=== PATIENT | male | born 1950 | race Caucasian/White ===

== ENCOUNTER 2017-08-18 12:06 | Inpatient (IN) | payer MEDICARE, BC ==
[~2017-08-18] VITALS: Ht 182.9 cm; Wt 100.5 kg
[2017-08-18] VITALS (13 sets, daily range): BP systolic 134–191; BP diastolic 69–96; PULSE 47–64; RESP 16–18; TEMP 98–98.2; O2SAT 98–100
[2017-08-18] MEDS ORDERED: SODIUM CHLORIDE 0.9% FLUSH 10 ML FLUSH IVF PRN (12:30)
--- NOTE | 2017-08-18 12:37 | PD ---
HPI Chief Complaint: Chest Pain Time Seen by Provider: 12:14 Travel History International Travel<30 days: No Contact w/Intl Traveler<30days: No Traveled to known affect area: No History of Present Illness HPI This 67-year-old male presents with complaint of chest pain. He started having chest pain 2 nights ago. Around bedtime he had an onset of substernal chest pain. He was unable to sleep for several hours and then the pain resolved and he was able to sleep. He had the pain again last night he says it lasted about an hour then he was a little bit short of breath he does not recall being diaphoretic. The pain again resolved. This morning he had the pain again. It started about an hour and a half before he came here. It has largely resolved at this time though he has some minimal discomfort. He has a history of coronary artery disease he says that 12 years ago he had 2 or 3 stents placed in his heart and he also had a stent placed in his abdominal aorta around that time. He does take aspirin daily. He has a history of hypertension and is on metoprolol. He does smoke a pack a day. There was no radiation of the pain. Since his stents replaced 12 years ago he does not think he has had a stress test. He was seeing in [place] but has moved back here. 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) Joint Replacement: Yes (left hip) Oral Surgery: Yes (wisdom teeth removed) Social History Alcohol Use: Yes (socially beer 2-3 a day) Tobacco Use: Yes (1 ppd) Substance Use: No Allergies-Medications (Allergen,Severity, Reaction): Coded Allergies: amoxicillin (Verified Allergy, Intermediate, n/v, 08/18/17) clavulanic acid (Verified Allergy, Intermediate, n/v, 08/18/17) Reported Meds & Prescriptions Reported Meds & Active Scripts Active Reported Centrum Silver Men Tablet (Multivit-Min/FA/Lycopen/Lutein) 300 Mcg-600 Mcg-300 Mcg Tablet 1 Tab PO DAILY Trazodone (Trazodone HCl) 100 Mg Tablet 100 Mg PO HS Ambien (Zolpidem Tartrate) 10 Mg Tab 10 Mg PO HS PRN Pantoprazole (Pantoprazole Sodium) 40 Mg Tab 40 Mg PO HS Metoprolol Succinate ER 24 HR (Metoprolol Succinate) 100 Mg Tab 100 Mg PO DAILY Triamterene-Hydrochlorothiazide 37.5-25 Mg Tab 1 Tab PO DAILY Livalo (Pitavastatin) 2 Mg Tab 2 Mg PO DAILY Aspirin EC (Aspirin) 325 Mg Tabdr 325 Mg PO DAILY Review of Systems General / Constitutional: No: Fever, Chills Eyes: No: Diploplia, Blurred Vision HENT: No: Headaches, Vertigo Cardiovascular: Positive: Chest Pain or Discomfort, No: Palpitations, Irregular Rhythm, Syncope, Edema Respiratory: No: Cough, Hemoptysis Gastrointestinal: No: Nausea, Vomiting Genitourinary: No: Frequency Musculoskeletal: No: Myalgias, Arthralgias Neurologic: No: Weakness Psychiatric: No: Suicidal Ideations Endocrine: No: Heat Intolerance, Cold Intolerance Hematologic/Lymphatic: No: Easy Bruising Physical Exam Narrative GENERAL: Well-developed male SKIN: Focused skin assessment warm/dry. HEAD: Atraumatic. Normocephalic. EYES: Pupils equal and round. No scleral icterus. No injection or drainage. ENT: No nasal bleeding or discharge. Mucous membranes pink and moist. NECK: Trachea midline. No JVD. CARDIOVASCULAR: Regular rate and rhythm. No murmur appreciated. RESPIRATORY: No accessory muscle use. Clear to auscultation. Breath sounds equal bilaterally. GASTROINTESTINAL: Abdomen soft, non-tender, nondistended. Hepatic and splenic margins not palpable. MUSCULOSKELETAL: No obvious deformities. No clubbing. No cyanosis. No edema. NEUROLOGICAL: Awake and alert. No obvious cranial nerve deficits. Motor grossly within normal limits. Normal speech. PSYCHIATRIC: Appropriate mood and affect; insight and judgment normal. Data Data Last Documented VS Vital Signs Date Time Temp Pulse Resp B/P (MAP) Pulse Ox O2 Delivery O2 Flow Rate FiO2 08/18/17 12:30 60 16 155/89 (111) 99 Room Air 08/18/17 12:17 98.0 Orders Orders Electrocardiogram (08/18/17 12:24) B-Type Natriuretic Peptide (08/18/17 12:24) Ckmb (Isoenzyme) Profile (08/18/17 12:24) Complete Blood Count With Diff (08/18/17 12:24) Comprehensive Metabolic Panel (08/18/17 12:24) Magnesium (Mg) (08/18/17 12:24) Prothrombin Time / Inr (Pt) (08/18/17 12:24) Act Partial Throm Time (Ptt) (08/18/17 12:24) Troponin I (08/18/17 12:24) Chest, Single Ap (08/18/17 12:24) Ecg Monitoring (08/18/17 12:24) Iv Access Insert/Monitor (08/18/17 12:24) Oximetry (08/18/17 12:24) Sodium Chloride 0.9% Flush (Ns Flush) (08/18/17 12:30) Nitroglycerin 2% Oint (Nitroglycerin 2% (08/18/17 13:45) Labs Laboratory Tests Test 08/18/17 12:10 White Blood Count 7.0 TH/MM3 Red Blood Count 4.91 MIL/MM3 Hemoglobin 16.1 GM/DL Hematocrit 47.3 % Mean Corpuscular Volume 96.5 FL Mean Corpuscular Hemoglobin 32.8 PG Mean Corpuscular Hemoglobin Concent 34.0 % Red Cell Distribution Width 11.9 % Platelet Count 260 TH/MM3 Mean Platelet Volume 7.5 FL Neutrophils (%) (Auto) 53.5 % Lymphocytes (%) (Auto) 36.0 % Monocytes (%) (Auto) 8.8 % Eosinophils (%) (Auto) 1.3 % Basophils (%) (Auto) 0.4 % Neutrophils # (Auto) 3.8 TH/MM3 Lymphocytes # (Auto) 2.5 TH/MM3 Monocytes # (Auto) 0.6 TH/MM3 Eosinophils # (Auto) 0.1 TH/MM3 Basophils # (Auto) 0.0 TH/MM3 CBC Comment DIFF FINAL Differential Comment Prothrombin Time 10.2 SEC Prothromb Time International Ratio 1.0 RATIO Activated Partial Thromboplast Time 26.3 SEC Blood Urea Nitrogen 9 MG/DL Creatinine 0.83 MG/DL Random Glucose 113 MG/DL Total Protein 8.0 GM/DL Albumin 3.8 GM/DL Calcium Level 8.7 MG/DL Magnesium Level 2.2 MG/DL Alkaline Phosphatase 76 U/L Aspartate Amino Transf (AST/SGOT) 20 U/L Alanine Aminotransferase (ALT/SGPT) 26 U/L Total Bilirubin 0.6 MG/DL Sodium Level 128 MEQ/L Potassium Level 3.6 MEQ/L Chloride Level 93 MEQ/L Carbon Dioxide Level 29.9 MEQ/L Anion Gap 5 MEQ/L Estimat Glomerular Filtration Rate 93 ML/MIN Total Creatine Kinase 64 U/L Troponin I 0.47 NG/ML B-Type Natriuretic Peptide 222 PG/ML [facility] Medical Decision Making Medical Screen Exam Complete: Yes Emergency Medical Condition: Yes Medical Record Reviewed: Yes Differential Diagnosis Differential includes coronary artery disease, unstable angina, and STEMI, GERD Narrative Course EKG shows sinus rhythm there are Q waves in leads III and F. There are symmetrically inverted T waves from V1 through V5 as well as lead I and L. Troponin level is 0.46. Patient has been pain-free Diagnosis Primary Impression: Acute coronary syndrome Bob Prather MD Aug 18, 2017 12:37
[2017-08-18] MEDS ORDERED: L-THPOW PO (12:47)
[2017-08-18] MEDS ORDERED: METO1TAB43 PO (12:47)
[2017-08-18] MEDS ORDERED: ASPI325T33 PO (12:47)
[2017-08-18] MEDS ORDERED: TRIA37.5 PO (12:47)
[2017-08-18] MEDS ORDERED: TRAZ100T10 PO (12:47)
[2017-08-18] MEDS ORDERED: AMBI10TA PO (12:47)
[2017-08-18] MEDS ORDERED: PANT40TA3 PO (12:47)
[2017-08-18] MEDS ORDERED: LIVA2TAB PO (12:47)
[2017-08-18] MEDS ORDERED: MULT1TAB64 PO (12:48)
[2017-08-18 12:50] LABS: AUTOMATED NEUTROPHIL # 3.8 TH/MM3 (1.8-7.7); BASOPHIL % 0.4 % (0.0-2.0); EOSINOPHIL # 0.1 TH/MM3 (0-0.4); EOSINOPHIL % 1.3 % (0.0-4.0); HEMATOCRIT 47.3 % (39.0-51.0); HEMOGLOBIN 16.1 GM/DL (13.0-17.0); LYMPHOCYTE # 2.5 TH/MM3 (1.0-4.8); MEAN CELL VOLUME 96.5 FL (80.0-100.0); MEAN CORPUSCULAR HEMOGLOBIN 32.8 PG (27.0-34.0); MEAN PLATELET VOLUME 7.5 FL (7.0-11.0); MONO % 8.8 % (0.0-8.0); MONOCYTE # 0.6 TH/MM3 (0-0.9); NEUT % 53.5 % (16.0-70.0); PLATELET COUNT 260 TH/MM3 (150-450); RED BLOOD COUNT 4.91 MIL/MM3 (4.50-5.90); RED CELL DISTRIBUTION WIDTH 11.9 % (11.6-17.2)
[2017-08-18 12:57] LABS: CHLORIDE 93 MEQ/L (98-107); SODIUM (NA) 128 MEQ/L (136-145)
[2017-08-18 13:00] LABS: CALCIUM 8.7 MG/DL (8.5-10.1)
[2017-08-18 13:01] LABS: ALBUMIN 3.8 GM/DL (3.4-5.0); BICARBONATE 29.9 MEQ/L (21.0-32.0); BLOOD UREA NITROGEN 9 MG/DL (7-18); GLUCOSE,RANDOM 113 MG/DL (74-106); MAGNESIUM 2.2 MG/DL (1.5-2.5); PROTHROMBIN TIME - PATIENT 10.2 SEC (9.8-11.6)
[2017-08-18 13:04] LABS: ALT (GPT) 26 U/L (12-78); AST (GOT) 20 U/L (15-37); CREATININE 0.83 MG/DL (0.60-1.30); GLOMERULAR FILTRATION RATE 93 ML/MIN (>89)
--- NOTE | 2017-08-18 13:04 | RADRPT ---
EXAM DATE/TIME: 08/18/2017 12:52 [facility] COMPARISON: No previous studies available for comparison. INDICATIONS : Chest pain. MEDICAL HISTORY : Hypertension. Hypercholesterolemia. Gastroesophageal reflux disease. CAD SURGICAL HISTORY : Aortic stent, Thyroidectomy ENCOUNTER: Initial ACUITY: 2 days PAIN SCORE: 3/10 LOCATION: Bilateral chest FINDINGS: A single view of the chest demonstrates the lungs to be symmetrically aerated without evidence of mas s, infiltrate or effusion. The cardiomediastinal contours are unremarkable. Mild degenerative change s are noted throughout the thoracic spine. CONCLUSION: No acute cardiopulmonary disease. Mild degenerative changes involving the thoracic sp ine. Quentin Rudd MD on August 18, 2017 at 13:02 Board Certified Radiologist. This report was verified electronically.
[2017-08-18 13:06] LABS: TOTAL BILIRUBIN ADULT 0.6 MG/DL (0.2-1.0)
[2017-08-18 13:07] LABS: ALKALINE PHOSPHATASE 76 U/L (45-117)
[2017-08-18 13:09] LABS: TROPONIN I 0.47 NG/ML (0.02-0.05)
[2017-08-18] MEDS ORDERED: NITROGLYCERIN 2% OINT 1 GM PACKET TOPICAL ONE (13:45)
[2017-08-18] MEDS ORDERED: HEPARIN-D5W 25,000 U/250 ML 250 ML IV PRN (14:15)
[2017-08-18] MEDS ORDERED: ONDANSETRON HCL 4 MG/2 ML VIAL IVP PRN (14:15)
[2017-08-18] MEDS ORDERED: SODIUM CHLORIDE 0.9% FLUSH 10 ML FLUSH IV FLUSH PRN ×2 (14:15→18:00)
[2017-08-18] MEDS ORDERED: NALOXONE HCL 0.4 MG/ML AMP IV PUSH PRN (14:15)
[2017-08-18] MEDS ORDERED: MAGNESIUM HYDROXIDE SUSP 30 ML CUP PO PRN (14:15)
[2017-08-18] MEDS ORDERED: HEPARIN SODIUM - IV 10,000 UNITS/10 ML VIAL IV PUSH ONE (14:15)
[2017-08-18] MEDS ORDERED: MORPHINE SULFATE 2 MG/ML INJ IV PUSH PRN ×2 (14:15)
[2017-08-18] MEDS ORDERED: MIDAZOLAM HCL 2 MG/2 ML VIAL ONE (16:00)
[2017-08-18] MEDS ORDERED: HEPARIN-NS/PF FLUSH BAG 2,000 ML IV FLUSH ONE (16:00)
[2017-08-18] MEDS ORDERED: HEPARIN SODIUM - IV 10,000 UNITS/10 ML VIAL ONE (17:07)
[2017-08-18] MEDS ORDERED: PRASUGREL 10 MG TAB ONE (17:25)
[2017-08-18] MEDS ORDERED: TIROFIBAN INFUSION INJ 250 ML IV ONE (17:25)
[2017-08-18] MEDS ORDERED: SODIUM NITROPRUSSIDE 50 MG/2 ML VIAL ONE (17:25)
[2017-08-18] MEDS ORDERED: NITROGLYCERIN-D5W 50 MG/250 ML 250 ML ONE (17:36)
[2017-08-18] MEDS ORDERED: TIROFIBAN INFUSION INJ 250 ML IV SCH (17:46)
[2017-08-18] MEDS ORDERED: ASPIRIN 81 MG CHEW TAB ONE (17:50)
--- NOTE | 2017-08-18 17:58 | CATHPROC ---
[facility]-SYNARC HIS Report Study Information Study Number Admission Scheduled Start Study Start [id number] Aug 18 2017 2:06PM 08/18/2017 Aug 18 2017 3:58PM [place] Service Cardiac Catheterization Admit Source Facility Department Emergency department [facility] - [employer] Machine Operator Physician and Clinical Staff Initial Eulalio Vences Crop PickerJeff Lewis,JASBIR Crop PickerBianca Colon,JASBIR Recorder Clifton, Donald,RT(R) Scrub Mark, Trish,SYSTEM SUPPORT TECHNICIAN TECH2 Procedures Performed Procedure Location (Site) Vessel Name Coronary Angiograms LCA Left Coronary LV Gram-hand inj. LV LV Ventricle Stent LAD Prox Left Coronary Wire insertion Fem Art (right) Femoral Art Equipment Time Telemedicine Physician Description Size Mfg Part Number Used/Scraped [id number] 17:06 [employer] WIRE, ASAHI PROWATER 180CM 180CM Used *[id number] 11393-02 17:09 [employer] WIRE, ASAHI PROWATER 180CM 180CM Used *[id number] 75221-92 17:16 [employer] WIRE, ASAHI PROWATER 180CM 180CM Used *[id number] 25356-10 17:18 [employer] WIRE, ASAHI PROWATER 180CM 180CM Used *[id number] 11297-75 17:29 [employer] WIRE, ASAHI PROWATER 180CM 180CM Used *[id number] CATHETER, FR5 SWAN KISHA 16:40 GEORGE BULLOCK FR 5 110F5 *[id number] Used MONITOR TRANSDUCER, TRUWAVE [id number] 16:00 GEORGE BULLOCK * Used W/STOCKCOCK *[id number] [id number] 17:14 [employer] WIRE, CHOICE PT 182CM 182CM Used *3998592 538-476 *5281091 538-446 *4018440 538-420 *[id number] 538-421 *[id number] [id number] *[id number] 16:00 [employer] PACK, CCL CUSTOM * Used *[id number] 16:00 MEDLINE PACER PEN, SKIN DUAL W/ RULER * Used *[id number] 17:09 [employer] STENT, 3.5 9 INTEGRITY 3.5 9 Used *[id number] 17:24 [employer] 30 SORAYA INDEFLATOR Used *[id number] 16:40 [employer] SHEATH, FR5.5 PRELUDE 11CM FR 5 [id number] Used [id number] 17:12 [employer] MEDICAL SHEATH, FR6.5 PRELUDE 11CM FR 6.5 038ACT Used *[id number] 16:00 [employer] MEDICAL WIRE, 3MMJ .035 180CM 180CM Used *[id number] [id number] 16:00 NAMIC MANIFOLD, 4 PORT * Used *[id number] 16:00 [employer] OMNIPAQUE, 350 MG, 150ML 150ML [id number] Used [id number] 16:00 [facility] BLANKET,WARM AIR CCL * Used *[id number] 16:00 [employer] MEDICAL SHEATH, FR4 TERUMO (10CM) FR 4 Used *[id number] Equipment Model, Serial, Lot Number and Expiration Data Description Model Number Serial Number Lot Number Expiration Date STENT, 3.5 9 INTEGRITY [id number] 06-29-2018 WIRE, CHOICE PT 182CM [id number] 03-29-2019 History: Current Medications Medication Dosage/Unit Route Frequency Last Date/Time Taken ASA LOPRESSOR Ambien History: Allergies Allergy Reaction clavulanic acid n/v amoxicillin n/v History: Risk Factors Family History of Hypertension Dyslipidemia Previous ID Previous Heart Failure Premature CAD Yes Yes Yes Yes No Prior Valve Prior PCI Prior PCIDate Prior CABG Surgery No Yes 07/23/2011 No Cerebrovascular Peripheral Artery Chronic Lung On Dialysis Diabetes Disease Disease Disease No No No No No History: Risk Factors Selection Items Current Smoker Obesity History: Symptoms/Diagnosis Selection Items Chest pain SOB History: CV Disease Selection Items Known CAD History: Stress Tests Stress or Imaging Studies Performed No History: Other Disease Selection Items CAD HTN History: Other Current Smoker Method Packs a Day Years Used Pack Years Yes Cigarettes 1 20 20 Labs Hgb (g/dl) Hct (%) RBC (MIL/MM3) WBC (l/cumm) Platelets (thousands) 11.60-17.00 35.00-51.00 4.00-5.90 4.00-11.00 150.00-450.00 16.1 47.3 4.9 7 260 Glucose (mg/dl) BUN (mg/dl) Creatinine (mg/dl) BUN:Creatinine (1:x) 74.00-106.00 7.00-18.00 0.50-1.30 10.00-20.00 113 9 0.8 11.3 Na (meq/l) K (meq/l) Cl (meq/l) CO2 (mmol/L) Ca (mg/dl) 136.00-145.00 3.50-5.10 98.00-107.00 21.00-32.00 8.50-10.10 128 3.6 93 29.9 8.7 PT (sec) PTT (sec) INR (PTT:PT) 9.80-11.60 24.30-30.10 0.90-1.10 10.2 26.3 1 Troponin I (ng/ml) CPK (u/l) CPK-MB (ng/ML) 0.02-0.05 26.00-308.00 0.50-3.60 0.47 64 Not Drawn Medication Medication Total Dose (Bolus/Oral) Medication Total Dosage/Unit 1% XYLOCAINE 20 mL AGGRASTAT BOLUS 51 meq/kg ASPIRIN 162 mg EFFIENT 60 mg FENTANYL 150 mcg HEPARIN 7100 units VERSED 1 mg Medications (Bolus/Oral) Medication Time Given Dosage/Unit Administered By Reason 1% XYLOCAINE 08/18/2017 4:40:49 PM 20 mL Jeff Ya 20 mL 1% XYLOCAINE given in lab by Jeff Ya RN via Subcutaneous. VERSED 08/18/2017 4:40:51 PM 1 mg Jeff Ya 1 mg VERSED given in lab by Jeff Ya RN in Right Antecubital via Peripheral IV. FENTANYL 08/18/2017 4:40:53 PM 12.5 mcg Jeff Ya 12.5 mcg FENTANYL given in lab by Jeff Ya RN in Right Antecubital via Peripheral IV. FENTANYL 08/18/2017 4:46:15 PM 12.5 mcg Jeff Ya 12.5 mcg FENTANYL given in lab by Jeff Ya RN in Right Antecubital via Peripheral IV. FENTANYL 08/18/2017 4:51:03 PM 12.5 mcg Jeff Ya 12.5 mcg FENTANYL given in lab by Jeff Ya RN in Right Antecubital via Peripheral IV. FENTANYL 08/18/2017 5:03:58 PM 12.5 mcg Jeff Ya 12.5 mcg FENTANYL given in lab by Jeff Ya RN in Right Antecubital via Peripheral IV. HEPARIN 08/18/2017 5:08:55 PM 7100 units Jeff Ya 7100 units HEPARIN given in lab by Jeff Ya RN in Right Antecubital via Peripheral IV. FENTANYL 08/18/2017 5:20:09 PM 12.5 mcg Jeff Ya 12.5 mcg FENTANYL given in lab by Jeff Ya RN in Right Antecubital via Peripheral IV. FENTANYL 08/18/2017 5:28:13 PM 12.5 mcg Jeff Ya 12.5 mcg FENTANYL given in lab by Jeff Ya RN in Right Antecubital via Peripheral IV. AGGRASTAT BOLUS 08/18/2017 5:29:46 PM 51 meq/kg Bianca Alvarado 51 meq/kg AGGRASTAT BOLUS given in lab by Bianca Alvarado RN in Right Antecubital via Peripheral IV. Amount given = 5217.3 meq. EFFIENT 08/18/2017 5:31:52 PM 60 mg Jeff Ya 60 mg EFFIENT given in lab by Jeff Ya RN via Oral. FENTANYL 08/18/2017 5:43:34 PM 25 mcg Bianca Alvarado 25 mcg FENTANYL given in lab by Bianca Alvarado RN in Right Antecubital via Peripheral IV. Ordered by Eulalio Terrell. FENTANYL 08/18/2017 5:47:58 PM 25 mcg Bianca Alvarado 25 mcg FENTANYL given in lab by Bianca Alvarado RN in Right Antecubital via Peripheral IV. Ordered by Eulalio Terrell. ASPIRIN 08/18/2017 5:51:56 PM 162 mg Jeff Ya 162 mg ASPIRIN given in lab by Jeff Ya RN via Oral. Ordered by Eulalio Terrell. FENTANYL 08/18/2017 5:53:30 PM 25 mcg Jeff Ya 25 mcg FENTANYL given in lab by Jeff Ya RN in Right Antecubital via Peripheral IV. Ordered by Eulalio Terrell. Medication (Drip) Medication Time Given Dosage/Unit Concentration/Unit Diluent (ml) Soluti on AGGRASTAT DRIP 08/18/2017 5:35:51 PM 0.15 mcg/kg/min 12.5 mg 250 NaCl .9 0.15 mcg/kg/min AGGRASTAT DRIP given in lab by Jeff Ya, JASBIR in Right Antecubital via Peripheral IV. Pump/Drip Flow = 18.41 ml/hr using NaCl .9 with a concentration of 12.5 mg in 250 ml. Ordered by Eulalio Terrell. IV Solutions 08/18/2017 4:01:53 PM 0 mL (IV) 500 NaCl .9 IV Solutions given in lab by Jeff Ya, JASBIR in Right Antecubital via Peripheral IV. Pump/Drip Madan w = 20 ml/hr using NaCl .9. NIPRIDE 08/18/2017 5:27:39 PM 200 mcg 200 mcg NIPRIDE given in lab by Trish Flores RRT TECH2 via Intra-coronary. Ordered by Kathy Terrell rthur. NITROGLYCERIN DRIP 08/18/2017 5:42:41 PM 10 mcg/min 50 mg 250 D5W 10 mcg/min NITROGLYCERIN DRIP given in lab by Bianca Alvarado, JASBIR in Right Antecubital via Peripheral IV. Pump/Drip Flow = 3 ml/hr using D5W with a concentration of 50 mg in 250 ml. Ordered by Eulalio Terrell. Initial Case Assessment Cardiovascular HR Rhythm Chest Pain 68 Sinus 0 Edema Present Skin color Skin None Normal Warm Dry Circulatory - Right Pulses Dorsalis Pedis Femoral 1 2 Scale (0,1,2,3,4,d) Circulatory - Left Pulses Dorsalis Pedis Femoral 1 2 Scale (0,1,2,3,4,d) Neurological State Oriented to time-place- Alert Moves all extremities person Respiration - General Respiration Rate SpO2 (%) O2 (lpm) (B/min) 14 99 0 Final Case Assessment Cardiovascular HR Rhythm NIBP Chest Pain 57 Sinus 168/102 8 Edema Present Skin color Skin None Normal Warm Dry Circulatory - Right Pulses Dorsalis Pedis Femoral 1 2 Scale (0,1,2,3,4,d) Circulatory - Left Pulses Dorsalis Pedis Femoral 1 2 Scale (0,1,2,3,4,d) Neurological State Oriented to time-place- Alert Moves all extremities person Respiration - General Respiration Rate SpO2 (%) O2 (lpm) (B/min) 13 96 0 Chronological Log Time Study Chronological Log 15:56:11 Patient arrived via Bed. 15:56:16 Patient Name, D.O.B, / Armband Verified By R.N. 15:58:23 Pre-op and post- op instructions given; patient acknowledges understanding of instructions. 15:58:24 Verbal Stimulation=2 Physical Stimulation=2 Airway=2 Respiration=2 TOTAL=8. (0=absent, 1=li mited, 2=present) 15:58:25 Presedation assessment performed by [employer] Machine Operator RN. 15:58:27 Patient has been NPO for More than 6Hrs. 15:58:28 Skin Breakdown- none per patient. 15:58:29 Gail Prominences Protected 16:01:38 A # 20 IV was noted in the Antecubital (right). Grade = 0 IV Solutions given in lab by Jeff Ya, RN in Right Antecubital via Peripheral IV. Pump/Dr ip Flow = 20 ml/hr using 16:01:53 NaCl .9. 16:02:18 History and physical on the chart or being dictated. Assessment: Initial Case, HR=68 BPM, Rhythm=Sinus, Chest Pain=0, Edema=None, Color=Normal, Skin = Warm, Dry Right Pulses: Geo Ped=1, Femoral=2 16:02:19 Left Pulses: Geo Ped=1, Femoral=2 Neurological: State=Alert, Ox3, LOPEZ Respiration: Resp=14 B/min, SpO2=99 %, O2=0 lpm Vitals capture started with the following parameters, Patient=Adult, Interval=5 min, Initial Pr rrfmtb=428 mmHg, 16:02:44 Deflation Rate=5 mmHg, Cuff placed on Unknown 16:04:49 HR=58 bpm, HNKC=933/92 mmhg, SpO2=99.0 %, Resp=19 B/min, Pain=0, Gustavo=10, Rodriguez=2 16:06:28 Bilateral groins prepped with 2% chlorhexidine, and draped after a 3 minute waiting time. 16:06:51 paged 16:08:24 HR=54 bpm, OEHH=818/94 mmhg, SpO2=99.0 %, Resp=10 B/min, Pain=0, Gustavo=10, Rodriguez=2 16:08:51 Pressure channel 1 zeroed. 16:10:08 Reference ECG taken 16:13:21 HR=59 bpm, LJIB=329/93 mmhg, SpO2=98.0 %, Resp=14 B/min, Pain=0, Gustavo=10, Rodriguez=2 16:16:19 MD responded 16:18:26 HR=56 bpm, YLTN=941/94 mmhg, SpO2=99.0 %, Resp=13 B/min, Pain=0, Gustavo=10, Rodriguez=2 16:23:54 HR=55 bpm, HRYM=712/91 mmhg, SpO2=98.0 %, Resp=19 B/min, Pain=0, Gustavo=10, Rodriguez=2 16:28:24 HR=60 bpm, PANS=019/97 mmhg, SpO2=99.0 %, Resp=15 B/min, Pain=0, Gustavo=10, Rodriguez=2 16:33:26 HR=57 bpm, XXSZ=602/92 mmhg, SpO2=99.0 %, Resp=16 B/min, Pain=0, Gustavo=10, Rodriguez=2 16:35:26 MD arrived. 16:39:12 ACUR=828/101 mmhg, SpO2=97.0 %, Resp=24 B/min, Pain=0, Gustavo=10, Rodriguez=2 Time Out. Correct patient, correct procedure, correct physician, power injector not loaded with contrast with surgical 16:40:32 team present. Time Out Concurred by MD and individual staff in procedure. 16:40:41 Case Start 16:40:49 20 mL 1% XYLOCAINE given in lab by Jeff Ya, RN via Subcutaneous. 16:40:51 1 mg VERSED given in lab by Jeff Ya, RN in Right Antecubital via Peripheral IV. 16:40:53 12.5 mcg FENTANYL given in lab by Jeff Ya, RN in Right Antecubital via Peripheral IV . 16:43:26 HR=55 bpm, IHKE=249/92 mmhg, SpO2=97.0 %, Resp=10 B/min, Pain=0, Gustavo=10, Rodriguez=2 16:46:15 12.5 mcg FENTANYL given in lab by Jeff Ya, RN in Right Antecubital via Peripheral IV . 16:47:30 Access site was Right Femoral Vein. 16:48:09 A SHEATH, FR5.5 PRELUDE 11CM FR 5 was advanced into the Fem Vein (right) using the Percutan eous technique. 16:48:27 HR=54 bpm, UKCU=375/87 mmhg, SpO2=95.0 %, Resp=8 B/min, Pain=0, Gustavo=10, Rodriguez=2 16:49:02 Access site was Right Femoral Artery. 16:49:20 A SHEATH, FR4 TERUMO (10CM) FR 4 was advanced into the Fem Art (right) using the Percutaneo us technique. 16:49:49 Activated Clotting Time Drawn 16:50:31 A CATHETER, FR5 SWAN KISHA MONITOR FR 5 was inserted via Fem Vein (right) 16:50:37 Saturation: Site=FA (Femoral Artery) , O2=95.8 %, Hgb=16.1 gm/dl, Condition=Condition 1. Us ed in calculation. 16:51:03 12.5 mcg FENTANYL given in lab by Jeff Ya, RN in Right Antecubital via Peripheral IV . Recorded Pressure: PCW, HR=63, Condition=Condition 1 16:52:18 (Pulmonary Capillary Wedge) PCW Recorded Pressure: MPA, HR=54, Condition=Condition 1 16:52:35 (Main Pulmonary Artery) MPA 16/02/15 16:52:51 ACT (Normal Range 90-180) = 157 16:53:26 HR=54 bpm, EFQW=288/80 mmhg, SpO2=92.0 %, Resp=19 B/min, Pain=0, Gustavo=10, Rodriguez=2 Recorded Pressure: RV, HR=56, Condition=Condition 1 16:53:48 (Right Ventricle) RV Recorded Pressure: RA, HR=55, Condition=Condition 1 16:54:03 (Right Atrium) RA 16:54:34 Saturation: Site=PA (Pulmonary Artery) , O2=71.3 %, Hgb=16.1 gm/dl, Condition=Condition 1. Used in calculation. 16:54:52 Catheter was removed 16:55:03 Saturation: Site=RA (Right Atrium) , O2=70.9 %, Hgb=16.1 gm/dl, Condition=Condition 1. Used in calculation. A JR 4.0 INFINITI CATHETER FR 4 was advanced over a wire. OMNIPAQUE, 350 MG, 150ML 150ML was us ed for 16:55:43 injections. Recorded Pressure: LV, HR=58, Condition=Condition 1 16:56:01 (Left Ventricle) LV 127/4/11 16:56:09 The LV was manually injected with 6 cc's and visualized. OMNIPAQUE, 350 MG, 150ML 150ML use d. Recorded Pressure: Ao, HR=52, Condition=Condition 1 16:56:39 (Aorta) Ao 134/67/93 After removing the current catheter a 3DRC INFINITI CATHETER FR 4 was advanced over a WIRE, 3MM J .035 180CM 16:57:42 180CM. 16:58:25 FPPK=685/81 mmhg, SpO2=92.0 %, Resp=12 B/min, Pain=0, Gustavo=10, Rodriguez=2 After removing the current catheter a AL 2 INFINITI CATHETER FR 4 was advanced over a WIRE, 3MM J .035 180CM 17:01:22 180CM. After removing the current catheter a JL 4.0 INFINITI CATHETER FR 4 was advanced over a WIRE, 3 MMJ .035 180CM 17:03:24 180CM. 17:03:26 HR=52 bpm, QJMY=182/86 mmhg, SpO2=94.0 %, Resp=14 B/min, Pain=0, Gustavo=10, Rodriguez=2 17:03:58 12.5 mcg FENTANYL given in lab by Jeff Ya, JASBIR in Right Antecubital via Peripheral IV . 17:05:05 The LCA was injected and visualized at various angles. OMNIPAQUE, 350 MG, 150ML 150ML used . 17:08:27 HR=61 bpm, HSVD=480/84 mmhg, SpO2=95.0 %, Resp=20 B/min, Pain=0, Gustavo=10, Rodriguez=2 17:08:55 7100 units HEPARIN given in lab by Jeff Ya, JASBIR in Right Antecubital via Peripheral I V. 17:09:32 A sheath was exchanged in the Fem Art (right). This was necessary in order to accomodate a larger catheter. A XB 3.5 GUIDE CATHETER FR 6 was advanced over a wire. OMNIPAQUE, 350 MG, 150ML 150ML was used for 17:10:43 injections. 17:12:33 A WIRE, ASAHI PROWATER 180CM 180CM was inserted via Fem Art (right). 17:12:52 A WIRE, ASAHI PROWATER 180CM 180CM was inserted via Fem Art (right). 17:13:28 HR=54 bpm, SMWN=492/79 mmhg, SpO2=95.0 %, Resp=26 B/min, Pain=0, Gustavo=10, Rodriguez=2 17:13:40 Interventional wire has crossed the lesion 17:14:31 Wire removed 17:15:25 A WIRE, CHOICE PT 182CM 182CM was inserted via Fem Art (right). 17:16:16 Wire removed 17:16:35 A WIRE, ASAHI PROWATER 180CM 180CM was inserted via Fem Art (right). 17:18:02 Wire removed 17:18:25 HR=60 bpm, WOZF=811/89 mmhg, SpO2=96.0 %, Resp=21 B/min, Pain=0, Gustavo=10, Rodriguez=2 17:18:46 A WIRE, ASAHI PROWATER 180CM 180CM was inserted via Fem Art (right). 17:20:09 12.5 mcg FENTANYL given in lab by Jeff Ya, RN in Right Antecubital via Peripheral IV . 17:21:05 Wire removed An STENT, 3.5 9 INTEGRITY 3.5 9 Bare Metal Stent was inserted through a XB 3.5 GUIDE CATHETER F R 6 over a 17:23:10 WIRE, ASAHI PROWATER 180CM 180CM. A STENT, 3.5 9 INTEGRITY 3.5 9 was deployed using a 30 SORAYA INDEFLATOR at 16 atmospheres for 20 seconds in the 17:23:22 LAD Prox. 17:23:30 HR=63 bpm, IGGG=965/103 mmhg, SpO2=99.0 %, Resp=17 B/min, Pain=0, Gustavo=10, Rodriguez=2 17:24:34 Delivery device removed 17:26:38 Wire removed 17:27:39 200 mcg NIPRIDE given in lab by Trish Flores, SYSTEM SUPPORT TECHNICIAN TECH2 via Intra-coronary. Ordered by Eulalio Quevedo. 17:28:13 12.5 mcg FENTANYL given in lab by Jeff Ya, JASBIR in Right Antecubital via Peripheral IV . 17:28:22 The LCA was injected and visualized at various angles. OMNIPAQUE, 350 MG, 150ML 150ML used . 17:28:35 HR=66 bpm, TUCL=611/86 mmhg, SpO2=96.0 %, Resp=12 B/min, Pain=0, Gustavo=10, Rodriguez=2 17:29:29 A WIRE, [employer] PROWATER 180CM 180CM was inserted via Fem Art (right). 51 meq/kg AGGRASTAT BOLUS given in lab by Bianca Alvarado RN in Right Antecubital via Periphera l IV. Amount given 17::46 = 5217.3 meq. 17:31:43 Catheter was removed 17::46 Wire removed 17:31:52 60 mg EFFIENT given in lab by Jeff Ya, JASBIR via Oral. 17:32:25 Case End 17:34:17 HR=65 bpm, RDJZ=793/102 mmhg, SpO2=98.0 %, Resp=22 B/min, Pain=0, Gustavo=10, Rodriguez=2 17:34:51 Sheath removed; pressure applied to access site. 17:35:00 No case complications noted. 17:35:03 Cine recording checked. 17:35:16 Sterile dressing applied to site Assessment: Final Case, HR=57 BPM, Rhythm=Sinus, EMVT=827/102 mmhg, Chest Pain=8, Edema=None, Color=Normal, Skin = Warm, Dry Right Pulses: Geo Ped=1, Femoral=2 17:35:19 Left Pulses: Geo Ped=1, Femoral=2 Neurological: State=Alert, Ox3, LOPEZ Respiration: Resp=13 B/min, SpO2=96 %, O2=0 lpm 0.15 mcg/kg/min AGGRASTAT DRIP given in lab by Jeff Ya, JASBIR in Right Antecubital via Sindi pheral IV. Pump/Drip 17:35:51 Flow = 18.41 ml/hr using NaCl .9 with a concentration of 12.5 mg in 250 ml. Ordered by Eulaloi Terrell. 17:37:30 Implantable Device card placed in patient's chart. 17:37:50 A Left and Right Heart Cath was performed. 17:38:14 Bedside Report will be given. 17:38:33 HR=64 bpm, KXLV=392/111 mmhg, SpO2=94.0 %, Resp=16 B/min, Pain=0, Gustavo=10, Rodriguez=2 10 mcg/min NITROGLYCERIN DRIP given in lab by Bianca Alvarado RN in Right Antecubital via Perip heral IV. Pump/Drip 17:42:41 Flow = 3 ml/hr using D5W with a concentration of 50 mg in 250 ml. Ordered by Eulaloi Terrell. 25 mcg FENTANYL given in lab by Bianca Alvarado RN in Right Antecubital via Peripheral IV. Manav oliveira by Nidhi, 17:43:34 Eulalio. 17:44:26 HR=59 bpm, XWBG=462/103 mmhg, SpO2=99.0 %, Resp=17 B/min, Pain=0, Gustavo=10, Rodriguez=2 25 mcg FENTANYL given in lab by Bianca Alvarado RN in Right Antecubital via Peripheral IV. Orde red by Nidhi, 17:47:58 Eulalio. 17:48:05 [facility] 17:51:56 162 mg ASPIRIN given in lab by Jeff Ya, JASBIR via Oral. Ordered by Eulalio Terrell. 25 mcg FENTANYL given in lab by Jeff Ya, JASBIR in Right Antecubital via Peripheral IV. Orde red by Nidhi, 17:53:30 Eulalio. End Study - Contrast Media Used In Study Contrast Total Opened (mL) Total Used (mL) Total Wasted (mL) Omnipaque 150 130 20 End Study - Maximum Contrast Load Max Contrast Load (mL) 639.2 End Study - Radiation Exposure Fluoro Time (minutes) 17.2 End Study - Patient Disposition Complications Transferred To Interventional Outcome No Telemetry Bed successful
[2017-08-18] MEDS ORDERED: MISC INFORMATION XX ONE (18:00)
[2017-08-18] MEDS ORDERED: NITROGLYCERIN-D5W 50 MG/250 ML 250 ML IV PRN (18:00)
--- NOTE | 2017-08-18 18:34 | HHI.HP ---
[facility] Service [facility] Hospitalists Primary Care Physician Kit Mazariegos MD Admission Diagnosis ACUTE CORONARY SYNDROME Diagnoses: Travel History International Travel<30 Days: No Contact w/Intl Traveler <30 Da: No Traveled to Known Affected Are: No History of Present Illness Mr. Peng is a 67-year-old male. He has a history of coronary artery disease and past history of smoking. He is currently still smoking. 12 years ago was his last coronary stent. He says it been chest pain-free for a long time but in the past week she's been having episodes of chest pain which is graduated over the past 3 days and was noted to be severe today. Exertional intolerance is present. He meets criteria for unstable angina. Heart catheter as planned this afternoon at [facility]. Positive history of myocardial infarctions and his family, specifically his father. He has had nitroglycerin here in the ER and his chest pain-free when I see him but notes that he's had recurrent episodes of chest pain today. No other complaints at this time. Review of Systems Constitutional: DENIES: Fatigue, Fever, Chills Eyes: DENIES: Blurred vision, Diplopia, Eye inflammation Ears, nose, mouth, throat: DENIES: Hearing loss, Vertigo, Nasal discharge Respiratory: DENIES: Cough, Wheezing, Shortness of breath Cardiovascular: COMPLAINS OF: Chest pain, DENIES: Palpitations, Syncope Gastrointestinal: DENIES: Abdominal pain, Black stools, Bloody stools Musculoskeletal: DENIES: Joint pain, Muscle aches, Stiffness Integumentary: DENIES: Abnormal pigmentation, Nail changes, Pruritus, Rash Hematologic/lymphatic: DENIES: Bruising, Lymphadenopathy Immunologic/allergic: DENIES: Eczema, Urticaria Neurologic: DENIES: Abnormal gait, Headache, Paresthesias Psychiatric: DENIES: Anxiety, Confusion, Hallucinations Past Family Social History Past Medical History Coronary artery disease Hypertension Hypothyroidism Gastroesophageal reflux disease Past Surgical History Cholecystectomy Coronary stent placements, last in 2004 Aortic aneurysm repair Left hip surgery Thyroid removal due to cancer [place] teeth removal Reported Medications Reported Meds & Active Scripts Active Reported Centrum Silver Men Tablet (Multivit-Min/FA/Lycopen/Lutein) 300 Mcg-600 Mcg-300 Mcg Tablet 1 Tab PO DAILY Trazodone (Trazodone HCl) 100 Mg Tablet 100 Mg PO HS Ambien (Zolpidem Tartrate) 10 Mg Tab 10 Mg PO HS PRN Pantoprazole (Pantoprazole Sodium) 40 Mg Tab 40 Mg PO HS Metoprolol Succinate ER 24 HR (Metoprolol Succinate) 100 Mg Tab 100 Mg PO DAILY Triamterene-Hydrochlorothiazide 37.5-25 Mg Tab 1 Tab PO DAILY Livalo (Pitavastatin) 2 Mg Tab 2 Mg PO DAILY Aspirin EC (Aspirin) 325 Mg Tabdr 325 Mg PO DAILY Allergies: Coded Allergies: amoxicillin (Verified Allergy, Intermediate, n/v, 08/18/17) clavulanic acid (Verified Allergy, Intermediate, n/v, 08/18/17) Family History Myocardial infarction in father Social History Alcohol Use: Yes (socially beer 2-3 a day) Tobacco Use: Yes (1 ppd) Substance Use: No Physical Exam Vital Signs Vital Signs Date Time Temp Pulse Resp B/P (MAP) Pulse Ox O2 Delivery O2 Flow Rate FiO2 08/18/17 17:25 88 161/88 08/18/17 15:20 59 16 142/90 (107) 98 08/18/17 14:30 64 16 153/96 (115) 98 Room Air 08/18/17 14:10 61 16 98 Room Air 08/18/17 14:00 57 16 155/95 (115) 98 Room Air 08/18/17 13:30 56 16 134/79 (97) 100 Room Air 08/18/17 13:00 58 16 150/90 (110) 98 Room Air 08/18/17 12:30 60 16 155/89 (111) 99 Room Air 08/18/17 12:21 60 16 99 Room Air 08/18/17 12:17 98.0 61 18 191/95 (127) 99 08/18/17 12:10 61 16 100 Room Air Physical Exam GENERAL: NAD, A&Ox3 HEAD: Normocephalic. NECK: Supple, trachea midline. No lymphadenopathy. EYES: No scleral icterus. No injection or drainage. CARDIOVASCULAR: Regular rate and rhythm without murmurs, gallops, or rubs. RESPIRATORY: Breath sounds equal bilaterally. No accessory muscle use. GASTROINTESTINAL: Abdomen soft, non-tender, nondistended. MUSCULOSKELETAL: No cyanosis, or edema. SKIN: Warm and dry. NEURO: No focal neurological deficitis. Laboratory Laboratory Tests Test 08/18/17 12:10 White Blood Count 7.0 Red Blood Count 4.91 Hemoglobin 16.1 Hematocrit 47.3 Mean Corpuscular Volume 96.5 Mean Corpuscular Hemoglobin 32.8 Mean Corpuscular Hemoglobin Concent 34.0 Red Cell Distribution Width 11.9 Platelet Count 260 Mean Platelet Volume 7.5 Neutrophils (%) (Auto) 53.5 Lymphocytes (%) (Auto) 36.0 Monocytes (%) (Auto) 8.8 Eosinophils (%) (Auto) 1.3 Basophils (%) (Auto) 0.4 Neutrophils # (Auto) 3.8 Lymphocytes # (Auto) 2.5 Monocytes # (Auto) 0.6 Eosinophils # (Auto) 0.1 Basophils # (Auto) 0.0 CBC Comment DIFF FINAL Differential Comment Prothrombin Time 10.2 Prothromb Time International Ratio 1.0 Activated Partial Thromboplast Time 26.3 Blood Urea Nitrogen 9 Creatinine 0.83 Random Glucose 113 Total Protein 8.0 Albumin 3.8 Calcium Level 8.7 Magnesium Level 2.2 Alkaline Phosphatase 76 Aspartate Amino Transf (AST/SGOT) 20 Alanine Aminotransferase (ALT/SGPT) 26 Total Bilirubin 0.6 Sodium Level 128 Potassium Level 3.6 Chloride Level 93 Carbon Dioxide Level 29.9 Anion Gap 5 Estimat Glomerular Filtration Rate 93 Total Creatine Kinase 64 Troponin I 0.47 B-Type Natriuretic Peptide 222 Result Diagram: 08/18/17 1210 08/18/17 1210 Imaging Last Impressions Chest X-Ray 08/18/17 1224 Signed Impressions: Service Date/Time: Friday, August 18, 2017 12:52 - CONCLUSION: No acute cardiopulmonary disease. Mild degenerative changes involving the thoracic spine. Quentin Rudd MD Caprini VTE Risk Assessment Caprini VTE Risk Assessment: Mod/High Risk (score >= 2) Caprini Risk Assessment Model Point Value = 1 Point Value = 2 Point Value = 3 Point Value = 5 Age 41-60 Minor surgery BMI > 25 kg/m2 Swollen legs Varicose veins or History of unexplained or recurrent spontaneous Oral contraceptives or hormone replacement Sepsis (< 1 month) Serious lung disease, including pneumonia (< 1 month) Abnormal pulmonary function Acute myocardial infarction Congestive heart failure (< 1 month) History of inflammatory bowel disease Medical patient at bed rest Age 61-74 Arthroscopic surgery Major open surgery (> 45 min) Laparoscopic surgery (> 45 min) Malignancy Confined to bed (> 72 hours) Immobilizing plaster cast Central venous access Age >= 75 History of VTE Family history of VTE Factor V Leiden Prothrombin [id number] Lupus anticoagulant Anticardiolipin antibodies Elevated serum homocysteine Heparin-induced thrombocytopenia Other congenital or acquired thrombophilia Stroke (< 1 month) Elective arthroplasty Hip, pelvis, or leg fracture Acute spinal cord injury (< 1 month) Prophylaxis Regimen Total Risk Factor Score Risk Level Prophylaxis Regimen 0-1 Low Early ambulation 2 Moderate Order ONE of the following: *Sequential Compression Device (SCD) *Heparin 5000 units SQ BID 3-4 Higher Order ONE of the following medications: *Heparin 5000 units SQ TID *Enoxaparin/Lovenox 40 mg SQ daily (WT < 150 kg, CrCl > 30 mL/min) *Enoxaparin/Lovenox 30 mg SQ daily (WT < 150 kg, CrCl > 10-29 mL/min) *Enoxaparin/Lovenox 30 mg SQ BID (WT < 150 kg, CrCl > 30 mL/min) AND/OR *Sequential Compression Device (SCD) 5 or more Highest Order ONE of the following medications: *Heparin 5000 units SQ TID (Preferred with Epidurals) *Enoxaparin/Lovenox 40 mg SQ daily (WT < 150 kg, CrCl > 30 mL/min) *Enoxaparin/Lovenox 30 mg SQ daily (WT < 150 kg, CrCl > 10-29 mL/min) *Enoxaparin/Lovenox 30 mg SQ BID (WT < 150 kg, CrCl > 30 mL/min) AND *Sequential Compression Device (SCD) Assessment and Plan Problem List: (1) Acute coronary syndrome ICD Code: I24.9 - Acute ischemic heart disease, unspecified Status: Acute (2) Unstable angina ICD Code: I20.0 - Unstable angina Assessment and Plan 67-year-old male admitted secondary to chest pain, unstable angina, acute coronary syndrome Chest pain Unstable angina Coronary artery disease Acute coronary syndrome Plan for heart catheter today Follow cardiac enzymes Aspirin daily When necessary oxygen When necessary morphine for pain. When necessary nitroglycerin Follow on telemetry Cardiology consulted Hypertension Continue baseline treatment Follow blood pressures Adjust treatments as needed Hypothyroidism Gastroesophageal reflux disease Continue baseline treatments DVT prophylaxis Patient is on heparin Physician Certification 2 Midnight Certification Type: Admission for Inpatient Services Order for Inpatient Services The services are ordered in accordance with Medicare regulations or non- Medicare payer requirements, as applicable. In the case of services not specified as inpatient-only, they are appropriately provided as inpatient services in accordance with the 2-midnight benchmark. Estimated LOS (days): 2 days is the estimated time the patient will need to remain in the hospital, assuming treatment plan goals are met and no additional complications. Post-Hospital Plan: Home Ryan Kraft MD Aug 18, 2017 18:34
[2017-08-18] MEDS ORDERED: PRASUGREL 10 MG TAB PO ONE (20:00)
[2017-08-18] MEDS ORDERED: HEPARIN SODIUM - IV 10,000 UNITS/10 ML VIAL IV PUSH PRN ×2 (20:15)
[2017-08-18] MEDS: SODIUM CHLOR 0.9% 1000 ML INJ 1,000 ML IV SCH (20:57)
[2017-08-18] MEDS ORDERED: SODIUM CHLORIDE 0.9% FLUSH 10 ML FLUSH IV FLUSH SCH (21:00)
[2017-08-18] MEDS ORDERED: ATORVASTATIN 10 MG TAB PO SCH (21:00)
[2017-08-18] MEDS: CARVEDILOL 3.125 MG TAB PO SCH (21:00)
[2017-08-18] MEDS: SODIUM CHLORIDE 0.9% FLUSH 10 ML FLUSH IV FLUSH SCH (21:00)
[2017-08-18] MEDS: PANTOPRAZOLE SOD 40 MG DELAYED RELEASE TAB PO SCH (22:33)
[2017-08-18] MEDS: traZODone HCL 100 MG TAB PO SCH (23:06)
[2017-08-18] MEDS: ZOLPIDEM TARTRATE 10 MG TAB PO PRN (23:13)
[2017-08-19] VITALS (26 sets, daily range): BP systolic 139–183; BP diastolic 88–99; PULSE 50–82; RESP 18–19; TEMP 97.9–98.2; O2SAT 97–100
[2017-08-19] MEDS: SODIUM CHLOR 0.9% 1000 ML INJ 1,000 ML IV SCH (00:15)
[2017-08-19] MEDS ORDERED: NITROGLYCERIN-D5W 50 MG/250 ML 250 ML IV PRN (02:30)
[2017-08-19] MEDS ORDERED: ACETAMINOPHEN/HYDROcodone 325 MG/5 MG TAB PO ONE (04:45)
[2017-08-19 05:13] LABS: AUTOMATED NEUTROPHIL # 4.3 TH/MM3 (1.8-7.7); BASOPHIL % 0.3 % (0.0-2.0); EOSINOPHIL # 0.1 TH/MM3 (0-0.4); EOSINOPHIL % 1.1 % (0.0-4.0); HEMATOCRIT 39.3 % (39.0-51.0); HEMOGLOBIN 14.1 GM/DL (13.0-17.0); LYMPH % 30.6 % (9.0-44.0); LYMPHOCYTE # 2.2 TH/MM3 (1.0-4.8); MEAN CELL VOLUME 95.2 FL (80.0-100.0); MEAN CORPUSCULAR HEMOGLOBIN 34.1 PG (27.0-34.0); MEAN CORPUSCULAR HGB CONC 35.8 % (32.0-36.0); MEAN PLATELET VOLUME 7.4 FL (7.0-11.0); MONO % 8.6 % (0.0-8.0); MONOCYTE # 0.6 TH/MM3 (0-0.9); NEUT % 59.4 % (16.0-70.0); PLATELET COUNT 208 TH/MM3 (150-450); RED BLOOD COUNT 4.13 MIL/MM3 (4.50-5.90); RED CELL DISTRIBUTION WIDTH 12.5 % (11.6-17.2); WHITE BLOOD COUNT 7.3 TH/MM3 (4.0-11.0)
[2017-08-19 05:31] LABS: AST (GOT) 34 U/L (15-37); BICARBONATE 22.5 MEQ/L (21.0-32.0); BLOOD UREA NITROGEN 9 MG/DL (7-18); CALCIUM 7.6 MG/DL (8.5-10.1); CHLORIDE 102 MEQ/L (98-107); GLOMERULAR FILTRATION RATE 113 ML/MIN (>89); GLUCOSE,RANDOM 91 MG/DL (74-106); SODIUM (NA) 132 MEQ/L (136-145)
[2017-08-19 05:32] LABS: ALT (GPT) 21 U/L (12-78); CHOLESTEROL 130 MG/DL (120-200); TRIGLYCERIDES 117 MG/DL (42-150)
[2017-08-19 05:36] LABS: ALKALINE PHOSPHATASE 61 U/L (45-117); CHOLESTEROL/ HDL RATIO 3.76 RATIO; HDL CHOLESTEROL 34.5 MG/DL (40.0-60.0); LDL CHOLESTEROL 72 MG/DL (0-99); TOTAL BILIRUBIN ADULT 0.5 MG/DL (0.2-1.0); TOTAL PROTEIN 6.2 GM/DL (6.4-8.2)
[2017-08-19 05:38] LABS: TROPONIN I 3.41 NG/ML (0.02-0.05)
[2017-08-19] MEDS: LEVOTHYROXINE SODIUM 150 MCG TAB PO SCH (06:13)
[2017-08-19] MEDS: RAMIPRIL 2.5 MG CAP PO SCH ×2 (08:37→11:31)
[2017-08-19] MEDS: SODIUM CHLORIDE 0.9% FLUSH 10 ML FLUSH IV FLUSH SCH ×2 (08:39→21:48)
[2017-08-19] MEDS: PRASUGREL 10 MG TAB PO SCH (08:39)
[2017-08-19] MEDS: ASPIRIN 81 MG CHEW TAB PO SCH (08:39)
[2017-08-19] MEDS: CARVEDILOL 3.125 MG TAB PO SCH (08:39)
[2017-08-19] MEDS ORDERED: PRAVASTATIN SOD 20 MG TAB PO SCH (09:00)
[2017-08-19] MEDS: TRIAMTERENE/HCTZ 37.5 MG/25 MG TAB PO SCH (10:00)
[2017-08-19 11:03] LABS: TROPONIN I 7.76 NG/ML (0.02-0.05)
--- NOTE | 2017-08-19 12:05 | MA ---
cc: Eulalio Terrell MD DATE: 08/18/2017 PROCEDURE PERFORMED: Right heart catheterization, left heart catheterization, left ventriculography, coronary angiography, and direct PCI with bare metal stent on the proximal LAD. INDICATION: Non-STEMI, congestive heart failure and coronary artery disease. DESCRIPTION OF PROCEDURE: The patient was brought to the cardiac catheterization lab. Prepped and draped in sterile fashion. 10 mL of 1% lidocaine was used to locally anesthetize the right commone femoral artery. A 4-Luxembourger sheath placed in the right common femoral artery. 5-1/2 Luxembourger sheath placed in the right common femoral vein. The right heart catheterization was was performed first with the following. FINDINGS: Pulmonary capillary wedge pressure 10/6, LV pressure 26/9/15, RV pressure 26/2-5, RA pressure 7/5-4. On room air, the femoral artery sat 95.8%, PA sat 71.3%, RA sat 70.9%. Cardiac output by Shawna is 5.2 liters per minute. Cardiac index by Shawna is 2.3 liters per minute per square per minute, SVR 1364 Dynes. Left heart catheterization was performed with a 4-Luxembourger , 3DRC AL1 and JR4 diagnostic catheters with the following LV pressures 130/5/6, ejection fraction 50%. I cannot directly engage the right coronary artery. On indirect aortic root imaging, I do not see any flow into the right coronary artery. 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 Due to the amount of and radiation used, I chose not to 20% stenosis and then followed by a high-grade 95% focal stenosis just proximal to a small diagonal vessel. Reference vessel diameter of 1-1.5 mm, which has ostial 80% stenosis and a proximal 80% stenosis. There is then moderate diffuse disease in the mid to distal LAD, which is a transapical vessel and actually supplies the mid to distal inferoapical wall. There is disease at the 50% sequentially in the mid segment, and the mid segment also has an ectatic appearing segment as well. The left circumflex vessel has a proximal 40-50% stenosis. Ramus intermedius vessel has a large vessel reference vessel diameter, probably 3.5 mm in diameter, with an ostial 50 percent stenosis and a proximal 70-75% stenosis. There is a small 1/2 mm diameter first obtuse marginal vessel, which has no significant obstructive disease. Second obtuse marginal vessel, medium size vessel, proximal bifurcation. No obvious focal stenosis. The left PDA is a relatively small vessel, 1-1.5 mm reference vessel diameter: No significant disease angiographically. A 6-Luxembourger sheath was exchanged with a 4-Luxembourger sheath, 70 units per kilo of heparin was given. ACT was 310. I used a XP 3.5 guide, placed 0.014 Prowater guidewire into the distal LAD. I made multiple attempts to try to wire the first diagonal artery in order to predilate it and protect it. I used 5 Prowater guidewires and 1 ChoICE PT and despite multiple attempts and angulation of the wire, I could not get into this diagonal vessel. It had actually probably 110 degree bend off the LAD and it was just at a previously placed stent margin, making it extremely difficult to access. I explained to the patient, there is a 10% chance that stenting of this lesion of the LAD would result in jailing of his diagonal vessel and would result in a heart attack, myocardial infarction, which as a vessel is a 1-1.5 mm reference vessel diameter, that this would be a relatively small myocardial infarction. Alternatively, bypass could be considered, but given the fact that this vessel was such a small vessel, I did not feel that overall risk/benefit ratio favored bypass surgery and, therefore, we proceeded with PCI of the LAD. I placed a 359 Integrity stent, one inflation, 9 atmospheres, 20 seconds. Stenosis went from 95% to 0% with CHI 3 flow. The first diagonal artery was jailed. The patient did develop chest pain. Again, I made multiple attempts again to try to rewire this vessel, but again due to vessel angulation and the fact that it was at its thin edge, it was extremely difficult to get in and I did not feel that the risks, benefits ratio favored further attempts. the patient 200 mcg of intracoronary Nipride . Started the patient on Aggrastat drip and also started him on 60 p.o. load of Effient. We treated his chest pain with fentanyl. CONCLUSIONS: 1. Non-STEMI culprit, 95% proximal LAD stenosis as detailed above and a left dominant system. 2. 70-75% proximal ramus intermedius vessel, which is the large vessel reference vessel diameter 3.5 mm in diameter. 3. Severe disease in a small first diagonal artery, reference vessel diameter of 1-1.5 mm in diameter. 4. Low normal LV systolic function of 50%. Cardiac index of 2.3 liters/m2 per minute. 5. Normal right heart pressures as detailed above. 6. Successful direct PCI bare metal stent of the proximal LAD from 95% to 0% with CHI 3 flow. 7. Subsequent jailing of the first diagonal artery with chest pain unrelieved with Nipride, Aggrastat, heparin with an ACT of 310, aspirin and Effient load. PLAN: Treat the patient's chest pain with fentanyl p.r.n. guidelines. Monitor on telemetry. MD SPIKE Vieyra/JOYCE , 05:45 PM , 06:30 PM
--- NOTE | 2017-08-19 14:13 | EKG ---
Date Performed: 08/18/2017 Time Performed: 22:30:44 PTAGE: 67 years EKG: Sinus bradycardia with borderline 1st degree A-V block. Prolonged QT interval Possible ante rior infarct - age undetermined Inferior/lateral ST-T changes may be due to myocardial ischemia Abnor mal ECG Compared to previous tracing, anterior T-wave abnormalities suggestive of ischemia. [place] has shifted and no further evidence of inferior infarct noted. NO PREVIOUS TRACING DOCTOR: Macario Justin Interpretating Date/Time 08/19/2017 14:13:34
--- NOTE | 2017-08-19 14:13 | EKG ---
Date Performed: 08/18/2017 Time Performed: 12:14:08 PTAGE: 67 years EKG: Sinus rhythm WITH 1ST DEGREE AV BLOCK INFERIOR MYOCARDIAL INFARCTION MARKED T-WAVE ABNORMALITY, CONSIDER ANTEROLA TERAL ISCHEMIA ABNORMAL ECG NO PREVIOUS TRACING DOCTOR: Macario Justin Interpretating Date/Time 08/19/2017 14:12:49
--- NOTE | 2017-08-19 14:14 | EKG ---
Date Performed: 08/19/2017 Time Performed: 06:01:18 PTAGE: 67 years EKG: Sinus bradycardia with 1st degree A-V block. Prolonged QT interval Extensive ST-T changes m ay be due to myocardial ischemia Abnormal ECG PREVIOUS TRACING DOCTOR: Macario Justin Interpretating Date/Time 08/19/2017 14:13:49
[2017-08-19 14:29] LABS: TROPONIN I 8.87 NG/ML (0.02-0.05)
[2017-08-19] MEDS: MORPHINE SULFATE 2 MG/ML INJ IV PUSH PRN ×2 (16:31→22:03)
--- NOTE | 2017-08-19 18:41 | PD.CARD.PN ---
Subjective Subjective Remarks c/o moderate chest pain, some waning but mostly plateauing Objective Medications Current Medications Medications (Trade) Dose Ordered Sig/Dorcas Route Start Time Stop Time Status Last Admin (Zofran Inj) 4 mg Q6H PRN IVP 08/18/17 14:15 (Narcan Inj) 0.4 mg UNSCH PRN IV PUSH 08/18/17 14:15 (Milk Of Magnpancho Liq) 30 ml Q12H PRN PO 08/18/17 14:15 (NS Flush) 2 ml UNSCH PRN IV FLUSH 08/18/17 18:00 (NS Flush) 2 ml BID IV FLUSH 08/18/17 21:00 (Aspirin Chew) 162 mg DAILY PO 08/19/17 09:00 08/19/17 08:39 (Effient) 10 mg DAILY PO 08/19/17 09:00 08/19/17 08:39 (Coreg) 3.125 mg BID PO 08/18/17 21:00 08/19/17 08:39 (Altace) 2.5 mg DAILY PO 08/19/17 09:00 08/19/17 11:31 (Protonix) 40 mg HS PO 08/18/17 21:00 08/18/17 22:33 (Maxzide 37.5-25 Mg) 1 tab DAILY PO 08/19/17 09:00 (Ambien) 10 mg HS PRN PO 08/18/17 18:45 08/18/17 23:13 (Synthroid) 150 mcg DAILY@0600 PO 08/19/17 06:00 08/19/17 06:13 (Desyrel) 100 mg HS PO 08/18/17 21:00 08/18/17 23:06 Nitroglycerin/ Dextrose 250 ml @ 0 mls/hr TITRATE PRN IV 08/19/17 02:30 08/18/17 20:30 (Morphine Inj) 2 mg Q4H PRN IV PUSH 08/19/17 16:00 08/19/17 16:31 (Lipitor) 20 mg HS PO 08/19/17 21:00 UNV Vital Signs / I&O Vital Signs Date Time Temp Pulse Resp B/P (MAP) Pulse Ox O2 Delivery O2 Flow Rate FiO2 08/19/17 18:00 66 08/19/17 17:00 169/88 (115) 08/19/17 17:00 62 08/19/17 16:36 18 08/19/17 16:00 98.0 62 19 183/99 (127) 98 08/19/17 16:00 60 08/19/17 15:00 62 08/19/17 14:00 60 08/19/17 13:00 60 08/19/17 12:00 64 08/19/17 12:00 164/98 (120) 08/19/17 11:00 64 08/19/17 10:30 139/88 (105) 08/19/17 10:00 62 08/19/17 09:30 157/99 (118) 08/19/17 08:30 62 08/19/17 08:20 97.9 58 19 172/97 (122) 98 08/19/17 06:21 55 08/19/17 05:03 53 08/19/17 04:33 57 08/19/17 03:21 52 08/19/17 03:14 97.9 52 19 163/91 (115) 100 08/19/17 02:33 51 08/19/17 01:23 50 08/19/17 00:05 50 08/18/17 23:53 50 08/18/17 23:30 98.2 50 18 141/79 (99) 100 08/18/17 22:15 47 08/18/17 21:00 47 08/18/17 20:30 59 155/78 08/18/17 20:20 51 08/18/17 19:10 94 Room Air I/O 08/18/17 08/18/17 08/18/17 08/19/17 08/19/17 08/19/17 07:00 15:00 23:00 07:00 15:00 23:00 Intake Total 480 ml Output Total 700 ml Balance -220 ml Intake Oral 480 ml Output Urine Total 700 ml Physical Exam GENERAL: SKIN: Warm and dry. HEAD: Normocephalic. EYES: No scleral icterus. No injection or drainage. NECK: Supple, trachea midline. No JVD or lymphadenopathy. CARDIOVASCULAR: Regular rate and rhythm without murmurs, gallops, or rubs. RESPIRATORY: Breath sounds equal bilaterally. No accessory muscle use. GASTROINTESTINAL: Abdomen soft, non-tender, nondistended. MUSCULOSKELETAL: No cyanosis, or edema. BACK: Nontender without obvious deformity. No CVA tenderness. Laboratory Laboratory Tests Test 08/18/17 22:23 08/19/17 04:27 08/19/17 09:28 08/19/17 12:35 Activated Partial Thromboplast Time 27.0 SEC Troponin I 1.05 NG/ML 3.41 NG/ML 7.76 NG/ML 8.87 NG/ML White Blood Count 7.3 TH/MM3 Red Blood Count 4.13 MIL/MM3 Hemoglobin 14.1 GM/DL Hematocrit 39.3 % Mean Corpuscular Volume 95.2 FL Mean Corpuscular Hemoglobin 34.1 PG Mean Corpuscular Hemoglobin Concent 35.8 % Red Cell Distribution Width 12.5 % Platelet Count 208 TH/MM3 Mean Platelet Volume 7.4 FL Neutrophils (%) (Auto) 59.4 % Lymphocytes (%) (Auto) 30.6 % Monocytes (%) (Auto) 8.6 % Eosinophils (%) (Auto) 1.1 % Basophils (%) (Auto) 0.3 % Neutrophils # (Auto) 4.3 TH/MM3 Lymphocytes # (Auto) 2.2 TH/MM3 Monocytes # (Auto) 0.6 TH/MM3 Eosinophils # (Auto) 0.1 TH/MM3 Basophils # (Auto) 0.0 TH/MM3 CBC Comment DIFF FINAL Differential Comment Blood Urea Nitrogen 9 MG/DL Creatinine 0.70 MG/DL Random Glucose 91 MG/DL Total Protein 6.2 GM/DL Albumin 3.0 GM/DL Calcium Level 7.6 MG/DL Alkaline Phosphatase 61 U/L Aspartate Amino Transf (AST/SGOT) 34 U/L Alanine Aminotransferase (ALT/SGPT) 21 U/L Total Bilirubin 0.5 MG/DL Sodium Level 132 MEQ/L Potassium Level 3.7 MEQ/L Chloride Level 102 MEQ/L Carbon Dioxide Level 22.5 MEQ/L Anion Gap 8 MEQ/L Estimat Glomerular Filtration Rate 113 ML/MIN Total Creatine Kinase 177 U/L 384 U/L 437 U/L Triglycerides Level 117 MG/DL Cholesterol Level 130 MG/DL LDL Cholesterol 72 MG/DL HDL Cholesterol 34.5 MG/DL Cholesterol/HDL Ratio 3.76 RATIO Creatine Kinase MB 32.1 NG/ML 38.6 NG/ML Creatine Kinase MB % 8.4 % 8.8 % Assessment and Plan Problem List: (1) NSTEMI (non-ST elevated myocardial infarction) ICD Codes: I21.4 - Non-ST elevation (NSTEMI) myocardial infarction (2) CAD (coronary artery disease) ICD Codes: I25.10 - Atherosclerotic heart disease of [place] coronary artery without angina pectoris (3) HTN (hypertension) ICD Codes: I10 - Essential (primary) hypertension Assessment and Plan 1.) NSTEMI - pod#1, chest pain due to jailed 1st diagonal vessel, ekg improved c /w pre pci, no st elevation, continue aspirin, effient, increase coreg 12.5 mg bid, increase altace to 5 mg qd, start 2 inch ntp q6hr, norvasc 5 mg qd, dc pravachol and increase lipitor 20 mg hs, trend cpk/trop until peak determined; plan and assessment fabian enrique/w patient, his and son, nurse at the bedside Eulalio Terrell MD Aug 19, 2017 18:41
[2017-08-19] MEDS ORDERED: amLODIPine BESYLATE 5 MG TAB PO ONE (18:45)
--- NOTE | 2017-08-19 19:41 | HHI.PR ---
Subjective Remarks Bp noted to be elevated denies chest pain at the moment of interview had chest pain earlier Objective Vitals Vital Signs Date Time Temp Pulse Resp B/P (MAP) Pulse Ox O2 Delivery O2 Flow Rate FiO2 08/19/17 18:00 66 08/19/17 17:00 169/88 (115) 08/19/17 17:00 62 08/19/17 16:36 18 08/19/17 16:00 98.0 62 19 183/99 (127) 98 08/19/17 16:00 60 08/19/17 15:00 62 08/19/17 14:00 60 08/19/17 13:00 60 08/19/17 12:00 64 08/19/17 12:00 164/98 (120) 08/19/17 11:00 64 08/19/17 10:30 139/88 (105) 08/19/17 10:00 62 08/19/17 09:30 157/99 (118) 08/19/17 08:30 62 08/19/17 08:20 97.9 58 19 172/97 (122) 98 08/19/17 06:21 55 08/19/17 05:03 53 08/19/17 04:33 57 08/19/17 03:21 52 08/19/17 03:14 97.9 52 19 163/91 (115) 100 08/19/17 02:33 51 08/19/17 01:23 50 08/19/17 00:05 50 08/18/17 23:53 50 08/18/17 23:30 98.2 50 18 141/79 (99) 100 08/18/17 22:15 47 08/18/17 21:00 47 08/18/17 20:30 59 155/78 08/18/17 20:20 51 I/O 08/18/17 08/18/17 08/18/17 08/19/17 08/19/17 08/19/17 07:00 15:00 23:00 07:00 15:00 23:00 Intake Total 480 ml Output Total 700 ml Balance -220 ml Intake Oral 480 ml Output Urine Total 700 ml Result Diagram: 08/19/17 04208/19/17426 Imaging Last Impressions Chest X-Ray 08/18/17 1224 Signed Impressions: Service Date/Time: Friday, August 18, 2017 12:52 - CONCLUSION: No acute cardiopulmonary disease. Mild degenerative changes involving the thoracic spine. Quentin Rudd MD Objective Remarks GENERAL: NAD, A&Ox3 HEAD: Normocephalic. NECK: Supple, trachea midline. No lymphadenopathy. EYES: No scleral icterus. No injection or drainage. CARDIOVASCULAR: Regular rate and rhythm without murmurs, gallops, or rubs. RESPIRATORY: Breath sounds equal bilaterally. No accessory muscle use. GASTROINTESTINAL: Abdomen soft, non-tender, nondistended. MUSCULOSKELETAL: No cyanosis, or edema. SKIN: Warm and dry. NEURO: No focal neurological deficitis. A/P Problem List: (1) Acute coronary syndrome ICD Code: I24.9 - Acute ischemic heart disease, unspecified Status: Acute (2) Unstable angina ICD Code: I20.0 - Unstable angina Assessment and Plan 67-year-old male admitted secondary to chest pain, unstable angina, acute coronary syndrome Chest pain Unstable angina Coronary artery disease Acute coronary syndrome Plan for heart catheter today Follow cardiac enzymes Aspirin daily When necessary oxygen When necessary morphine for pain. When necessary nitroglycerin Follow on telemetry Cardiology consulted 08/19 Patient sp cardiac catheterization with successful direct PCI bare metal stent of the proximal LAD. Continue ASA, Effient, stain , beta veronica. Hypertension Continue baseline treatment Follow blood pressures Adjust treatments as needed 08/19 BP elevated. Patient started on Coreg, amlodipine, ramipril as per cardiology recommendations. Hypothyroidism Gastroesophageal reflux disease On PPI Stable Prolonged QT Monitor on telemetry, repeat ekg in am. Avoid medications that could prolong QT. DVT proph: SCD's, on effient and aspirin. Discharge Planning DC pending stablization of BP and cardiology clearance. Saul Aguilera MD Aug 19, 2017 19:41
[2017-08-19] MEDS ORDERED: ATORVASTATIN 20 MG TAB PO SCH (21:00)
[2017-08-19] MEDS: CARVEDILOL 12.5 MG TAB PO SCH (21:48)
[2017-08-19] MEDS: PANTOPRAZOLE SOD 40 MG DELAYED RELEASE TAB PO SCH (21:48)
[2017-08-19] MEDS: traZODone HCL 100 MG TAB PO SCH (21:48)
[2017-08-19] MEDS: ZOLPIDEM TARTRATE 10 MG TAB PO PRN (22:02)
[2017-08-19] MEDS: NITROGLYCERIN 2% OINT 1 GM PACKET TOPICAL SCH (23:42)
[2017-08-20] VITALS (15 sets, daily range): BP systolic 108–147; BP diastolic 56–78; PULSE 58–80; RESP 16–18; TEMP 97.9–98.2; O2SAT 95–96
[2017-08-20 01:55] LABS: BICARBONATE 26.2 MEQ/L (21.0-32.0); CALCIUM 7.9 MG/DL (8.5-10.1); CREATININE 0.62 MG/DL (0.60-1.30); MAGNESIUM 1.8 MG/DL (1.5-2.5)
[2017-08-20 02:22] LABS: TROPONIN I 12.9 NG/ML (0.02-0.05)
[2017-08-20] MEDS: NITROGLYCERIN 2% OINT 1 GM PACKET TOPICAL SCH ×2 (05:53→11:41)
[2017-08-20] MEDS: LEVOTHYROXINE SODIUM 150 MCG TAB PO SCH (05:56)
[2017-08-20] MEDS: SODIUM CHLORIDE 0.9% FLUSH 10 ML FLUSH IV FLUSH SCH (09:00)
[2017-08-20] MEDS ORDERED: RAMIPRIL 5 MG CAP PO SCH (09:00)
[2017-08-20] MEDS ORDERED: amLODIPine BESYLATE 5 MG TAB PO SCH (09:00)
[2017-08-20] MEDS: ASPIRIN 81 MG CHEW TAB PO SCH (09:10)
[2017-08-20] MEDS: PRASUGREL 10 MG TAB PO SCH (09:11)
[2017-08-20] MEDS: CARVEDILOL 12.5 MG TAB PO SCH (09:12)
[2017-08-20] MEDS: TRIAMTERENE/HCTZ 37.5 MG/25 MG TAB PO SCH (10:44)
--- NOTE | 2017-08-20 12:20 | PD.CARD.PN ---
Subjective Subjective Remarks assymptomatic, feels "great", wants to go home Objective Medications Current Medications Medications (Trade) Dose Ordered Sig/Dorcas Route Start Time Stop Time Status Last Admin (Zofran Inj) 4 mg Q6H PRN IVP 08/18/17 14:15 (Narcan Inj) 0.4 mg UNSCH PRN IV PUSH 08/18/17 14:15 (Milk Of Magnesia Liq) 30 ml Q12H PRN PO 08/18/17 14:15 (NS Flush) 2 ml UNSCH PRN IV FLUSH 08/18/17 18:00 (NS Flush) 2 ml BID IV FLUSH 08/18/17 21:00 08/20/17 09:00 (Aspirin Chew) 162 mg DAILY PO 08/19/17 09:00 08/20/17 09:10 (Effient) 10 mg DAILY PO 08/19/17 09:00 08/20/17 09:11 (Protonix) 40 mg HS PO 08/18/17 21:00 08/19/17 21:48 (Maxzide 37.5-25 Mg) 1 tab DAILY PO 08/19/17 09:00 08/20/17 10:44 (Ambien) 10 mg HS PRN PO 08/18/17 18:45 08/19/17 22:02 (Synthroid) 150 mcg DAILY@0600 PO 08/19/17 06:00 08/20/17 05:56 (Desyrel) 100 mg HS PO 08/18/17 21:00 08/19/17 21:48 Nitroglycerin/ Dextrose 250 ml @ 0 mls/hr TITRATE PRN IV 08/19/17 02:30 08/18/17 20:30 (Morphine Inj) 2 mg Q4H PRN IV PUSH 08/19/17 16:00 08/19/17 22:03 (Lipitor) 20 mg HS PO 08/19/17 21:00 08/19/17 21:48 (Coreg) 12.5 mg Q12HR PO 08/19/17 21:00 08/20/17 09:12 (Altace) 5 mg DAILY PO 08/20/17 09:00 08/20/17 09:12 (Nitroglycerin 2% Oint) 2 inch Q6HR TOPICAL 08/20/17 00:00 08/20/17 11:41 (Norvasc) 5 mg DAILY PO 08/20/17 09:00 08/20/17 09:12 Vital Signs / I&O Vital Signs Date Time Temp Pulse Resp B/P (MAP) Pulse Ox O2 Delivery O2 Flow Rate FiO2 08/20/17 08:00 98.2 78 16 147/78 (101) 96 08/20/17 07:00 60 08/20/17 05:00 65 08/20/17 04:42 97.9 76 18 108/56 (73) 95 08/20/17 04:00 63 08/20/17 03:00 74 08/20/17 02:00 76 08/20/17 01:00 72 08/20/17 00:00 98.2 65 18 117/59 (78) 95 08/20/17 00:00 68 08/19/17 23:00 68 08/19/17 22:00 72 08/19/17 21:00 66 08/19/17 20:00 98.2 82 18 155/88 (110) 97 08/19/17 20:00 64 08/19/17 19:00 62 08/19/17 18:00 66 08/19/17 17:00 169/88 (115) 08/19/17 17:00 62 08/19/17 16:36 18 08/19/17 16:00 98.0 62 19 183/99 (127) 98 08/19/17 16:00 60 08/19/17 15:00 62 08/19/17 14:00 60 08/19/17 13:00 60 I/O 08/19/17 08/19/17 08/19/17 08/20/17 08/20/17 08/20/17 07:00 15:00 23:00 07:00 15:00 23:00 Intake Total 480 ml 240 ml Output Total 700 ml 900 ml Balance -220 ml -660 ml Intake Oral 480 ml 240 ml Output Urine Total 700 ml 900 ml Physical Exam GENERAL: SKIN: Warm and dry. HEAD: Normocephalic. EYES: No scleral icterus. No injection or drainage. NECK: Supple, trachea midline. No JVD or lymphadenopathy. CARDIOVASCULAR: Regular rate and rhythm without murmurs, gallops, or rubs. RESPIRATORY: Breath sounds equal bilaterally. No accessory muscle use. GASTROINTESTINAL: Abdomen soft, non-tender, nondistended. MUSCULOSKELETAL: No cyanosis, or edema. BACK: Nontender without obvious deformity. No CVA tenderness. Laboratory Laboratory Tests Test 08/19/17 12:35 08/19/17 19:05 08/20/17 00:52 Total Creatine Kinase 437 U/L 458 U/L 386 U/L Creatine Kinase MB 38.6 NG/ML 35.8 NG/ML 27.1 NG/ML Creatine Kinase MB % 8.8 % 7.8 % 7.0 % Troponin I 8.87 NG/ML 10.90 NG/ML 12.90 NG/ML Blood Urea Nitrogen 10 MG/DL Creatinine 0.62 MG/DL Random Glucose 91 MG/DL Calcium Level 7.9 MG/DL Magnesium Level 1.8 MG/DL Sodium Level 134 MEQ/L Potassium Level 3.7 MEQ/L Chloride Level 100 MEQ/L Carbon Dioxide Level 26.2 MEQ/L Anion Gap 8 MEQ/L Estimat Glomerular Filtration Rate 130 ML/MIN B-Type Natriuretic Peptide 443 PG/ML Assessment and Plan Problem List: (1) NSTEMI (non-ST elevated myocardial infarction) ICD Codes: I21.4 - Non-ST elevation (NSTEMI) myocardial infarction (2) CAD (coronary artery disease) ICD Codes: I25.10 - Atherosclerotic heart disease of [place] coronary artery without angina pectoris (3) HTN (hypertension) ICD Codes: I10 - Essential (primary) hypertension Assessment and Plan 1.) NSTEMI - pod#2, chest pain due to jailed 1st diagonal vessel, ekg improved c /w pre pci, no st elevation, assymptomtaic, cpk trending down, ok to dc from cv standpoint, continue aspirin, effient 10 mg po qd, coreg 12.5 mg bid, altace 5 mg qd, change 2 inch ntp to imdur 60 mg qd, norvasc 5 mg qd, dc pravachol and increase lipitor 20 mg hs, f/u with me in office 08/23/17, call 911 if chest pain lasts longer than 15 minutes, d/w patient and his at the bedside Eulalio Terrell MD Aug 20, 2017 12:20
[2017-08-20] MEDS ORDERED: PRAS10TA PO (13:53)
[2017-08-20] MEDS ORDERED: RAMI5CAP PO (13:53)
[2017-08-20] MEDS ORDERED: CARV12.5 PO (13:53)
[2017-08-20] MEDS ORDERED: AMLO5 PO (13:53)
--- NOTE | 2017-08-20 13:53 | HHI.DS ---
Discharge Summary Admission Date Aug 18, 2017 at 14:06 Admitting Diagnosis ACUTE CORONARY SYNDROME (1) Acute coronary syndrome ICD Code: I24.9 - Acute ischemic heart disease, unspecified Status: Acute (2) Unstable angina ICD Code: I20.0 - Unstable angina Brief History - From Admission Mr. Peng is a 67-year-old male. He has a history of coronary artery disease and past history of smoking. He is currently still smoking. 12 years ago was his last coronary stent. He says it been chest pain-free for a long time but in the past week she's been having episodes of chest pain which is graduated over the past 3 days and was noted to be severe today. Exertional intolerance is present. He meets criteria for unstable angina. Heart catheter as planned this afternoon at [facility]. Positive history of myocardial infarctions and his family, specifically his father. He has had nitroglycerin here in the ER and his chest pain-free when I see him but notes that he's had recurrent episodes of chest pain today. No other complaints at this time. CBC/BMP: 08/19/17 0427 08/20/17 0052 Significant Findings Laboratory Tests Test 08/18/17 12:10 08/18/17 22:23 08/19/17 04:27 08/19/17 09:28 Monocytes (%) (Auto) 8.8 % (0.0-8.0) 8.6 % (0.0-8.0) Random Glucose 113 MG/DL (74-106) Sodium Level 128 MEQ/L (136-145) 132 MEQ/L (136-145) Chloride Level 93 MEQ/L (98-107) Troponin I 0.47 NG/ML (0.02-0.05) 1.05 NG/ML (0.02-0.05) 3.41 NG/ML (0.02-0.05) 7.76 NG/ML (0.02-0.05) B-Type Natriuretic Peptide 222 PG/ML (0-100) Red Blood Count 4.13 MIL/MM3 (4.50-5.90) Mean Corpuscular Hemoglobin 34.1 PG (27.0-34.0) Total Protein 6.2 GM/DL (6.4-8.2) Albumin 3.0 GM/DL (3.4-5.0) Calcium Level 7.6 MG/DL (8.5-10.1) HDL Cholesterol 34.5 MG/DL (40.0-60.0) Total Creatine Kinase 384 U/L (39-308) Creatine Kinase MB 32.1 NG/ML (0.5-3.6) Creatine Kinase MB % 8.4 % (0.0-4.0) Test 08/19/17 12:35 08/19/17 19:05 08/20/17 00:52 Total Creatine Kinase 437 U/L (39-308) 458 U/L (39-308) 386 U/L (39-308) Creatine Kinase MB 38.6 NG/ML (0.5-3.6) 35.8 NG/ML (0.5-3.6) 27.1 NG/ML (0.5-3.6) Creatine Kinase MB % 8.8 % (0.0-4.0) 7.8 % (0.0-4.0) 7.0 % (0.0-4.0) Troponin I 8.87 NG/ML (0.02-0.05) 10.90 NG/ML (0.02-0.05) 12.90 NG/ML (0.02-0.05) Calcium Level 7.9 MG/DL (8.5-10.1) Sodium Level 134 MEQ/L (136-145) B-Type Natriuretic Peptide 443 PG/ML (0-100) PE at Discharge GENERAL: NAD, A&Ox3 HEAD: Normocephalic. NECK: Supple, trachea midline. No lymphadenopathy. EYES: No scleral icterus. No injection or drainage. CARDIOVASCULAR: Regular rate and rhythm without murmurs, gallops, or rubs. RESPIRATORY: Breath sounds equal bilaterally. No accessory muscle use. GASTROINTESTINAL: Abdomen soft, non-tender, nondistended. MUSCULOSKELETAL: No cyanosis, or edema. SKIN: Warm and dry. NEURO: No focal neurological deficitis. Pt Condition on Discharge: Good Discharge Disposition: Discharge Home Discharge Instructions DIET: Follow Instructions for: Heart Healthy Diet Activities you can perform: Regular-No Restrictions Divine Cardenas MD Aug 20, 2017 13:53
[2017-08-20] MEDS ORDERED: ISOS60TA PO (14:09)
== END 2017-08-20 14:20 | disposition home or self-care (01) | DRG 249 ==
LOC: PHED 12:06 → PHEDA 14:06 → HCPC 20:20 → HCIS 08-19 08:17
PROVIDERS: ADMIT Family Medicine; ATTEND Family Medicine
PROC: 02703DZ Dilation of Coronary Artery, One Artery with Intraluminal Device, Percutaneous Approach (ICD-10-PCS; principal; 2017-08-18)
PROC: 4A023N8 Measurement of Cardiac Sampling and Pressure, Bilateral, Percutaneous Approach (ICD-10-PCS; 2017-08-18)
PROC: B2111ZZ Fluoroscopy of Multiple Coronary Arteries using Low Osmolar Contrast (ICD-10-PCS; 2017-08-18)
PROC: B2151ZZ Fluoroscopy of Left Heart using Low Osmolar Contrast (ICD-10-PCS; 2017-08-18)
DX: I21.4 Non-ST elevation (NSTEMI) myocardial infarction (principal); I10 Essential (primary) hypertension; I25.110 Atherosclerotic heart disease of native coronary artery with unstable angina pectoris; E03.9 Hypothyroidism, unspecified; K21.9 Gastro-esophageal reflux disease without esophagitis; E78.00 Pure hypercholesterolemia, unspecified; I25.2 Old myocardial infarction; Z79.82 Long term (current) use of aspirin; F17.210 Nicotine dependence, cigarettes, uncomplicated; Z79.899 Other long term (current) drug therapy; Z82.49 Family history of ischemic heart disease and other diseases of the circulatory system
CPT/HCPCS: 71045; 80048; 80053; 80061; 82550; 82552; 82810; 83735; 83880; 84484; 85002; 85025; 85610; 85730; 92928; 93005; 93458; 93460; C1769; C1876; C1887; C1893; J1644; J2250; J2270; J3010; J3246; J7030